=== PATIENT | female | born 1960 | race Caucasian/White ===

== ENCOUNTER 2019-12-25 14:27 | Emergency (ER) | payer SELFPAY ==
[~2019-12-25] VITALS: Ht 162.5 cm; Wt 99.8 kg
[~2019-12-25 14:27] MED LIST: CYCLOBENZAPRINE10 MG PO; NAPROSYN500 MG PO; PREDNISONE20 M1 PO
[2019-12-25 15:23] LABS: BASO # 0.1 10*3/uL (0.0-0.1); BASO % 0.8 % (0.0-1.0); EOS # 0.1 10*3/uL (0.0-0.4); EOS % 1.6 % (1.0-4.0); HEMATOCRIT 39.3 % (37.0-47.0); HEMOGLOBIN 12.7 g/dl (12.0-16.0); LYMPH # 2.6 10*3/uL (1.3-4.4); LYMPH % 31.2 % (27.0-41.0); MEAN CELL VOLUME 93.8 fl (81.0-99.0); MEAN CORPUSCULAR HGB 30.3 pg (27.0-31.0); MEAN CORPUSCULAR HGB CONC 32.3 g/dl (33.0-37.0); MEAN PLATELET VOLUME 8.9 fl (9.6-12.3); MONO # 0.8 10*3/uL (0.1-1.0); MONO % 9.2 % (3.0-9.0); NEUT # 4.7 10*3/uL (2.3-7.9); PLATELET COUNT AUTOMATED 439 10*3/uL (130-400); RED BLOOD COUNT 4.19 10*6/uL (4.10-5.10); RED CELL DISTRI WIDTH 12.7 % (0-14.5); WHITE BLOOD COUNT 8.3 10*3/uL (4.8-10.8)
[2019-12-25 15:35] LABS: ACT PARTIAL THROMBO TIME 25.1 SECONDS (20.0-32.1); INTERNATIONAL NORM RATIO 0.9 (2.0-3.5)
[2019-12-25 15:39] LABS: ALBUMIN 3.6 gm/dl (3.1-4.5); ALKALINE PHOSPHATASE 78 U/L (45-117); BUN 16 mg/dl (7-24); CHLORIDE 111 mmol/L (98-107); POTASSIUM 4.2 mmol/L (3.5-5.1); SGOT/AST 17 IU/L (3-35); SGPT/ALT 34 U/L (12-78); SODIUM 141 mmol/L (136-145); TOTAL PROTEIN 6.8 gm/dL (6.4-8.2)
[2019-12-25 15:42] LABS: TROPONIN I < 0.015 ng/ml (<0.045)
[2019-12-25] MEDS ORDERED: ZYRTEC10 M2 PO (17:37)
[2019-12-25] MEDS ORDERED: FLONASE ALLERG9.9 ML NAS (17:37)
[2019-12-25] MEDS ORDERED: MEDI-MECLIZINE25 MG PO (17:37)
[2019-12-25] MEDS ORDERED: AMOXICILLIN500 M2 PO (17:37)
[2019-12-25] MEDS ORDERED: HYDROXYZINE HCL25 MG PO (17:46)
== END 2019-12-25 17:39 ==
LOC: ED 14:27
PROVIDERS: Physician Assistant
DX: R42 Dizziness and giddiness (principal); H66.91 Otitis media, unspecified, right ear; R79.1 Abnormal coagulation profile; Z88.6 Allergy status to analgesic agent

== ENCOUNTER → 2025-01-22 | Outpatient (CLI) | payer OTHER ==
[~2025-01-22] MED LIST changes: +AMOXICILLIN500 M2 PO; +FLONASE ALLERG9.9 ML NAS; +HYDROXYZINE HCL25 MG PO; +MEDI-MECLIZINE25 MG PO; +ZYRTEC10 M2 PO
[2025-01-22 14:45] LABS: FREE T4 1.91 ng/dl (0.89-1.76)
== END | disposition home or self-care (01) ==
LOC: LAB 13:43
PROVIDERS: Student in an Organized Health Care Education/Training Program; ATTEND Dermatology
DX: E11.9 Type 2 diabetes mellitus without complications (principal); E05.90 Thyrotoxicosis, unspecified without thyrotoxic crisis or storm